=== PATIENT | male | born 1945 | race Hispanic/Latino ===

== ENCOUNTER → 2017-09-29 | Day surgery (SDC) | payer MEDICARE, BC ==
[2017-09-26 13:55] LABS: BASOPHILS % 0.5 % (0.0-1.0); EOSINOPHILS # (AUTO) 0.1 (0.0-0.4); EOSINOPHILS % 1.6 % (0.0-6.0); HEMOGLOBIN 13.1 g/dL (14.0-18.0); LYMPHOCYTES # (AUTO) 1.7 (1.0-3.2); LYMPHOCYTES % 30.2 % (18.0-39.1); MEAN CORPUSCULAR HEMOGLOBIN 28.9 pg (28-32); MEAN CORPUSCULAR HGB CONC 34.5 g/dL (31-35); MEAN CORPUSCULAR VOLUME 83.9 fL (81-99); MONOCYTES # (AUTO) 0.4 (0.2-0.8); MONOCYTES % 7.5 % (4.4-11.3); NEUTROPHILS # (AUTO) 3.3 (2.1-6.9); NEUTROPHILS % 59.8 % (38.7-80.0); PLATELET COUNT 147 x10e3/uL (140-360); RED BLOOD COUNT 4.53 x10e6/uL (4.3-5.7); RED CELL DISTRIBUTION WIDTH 12.7 % (11.7-14.4)
[~2017-09-29] MED LIST: BYSTOLIC PO; FENTANYL CITRATE/PF 100MCG/2 ML INJ ONE; GABAPENTIN300 MG PO; HYOSCYAMINE SULFATE 0.5 MG/ML AMP ONE; IBUPROFEN200 MG PO; INVOKANA PO; LOSARTAN-HCTZ1 EAC2 PO; MIDAZOLAM HCL 2 MG/2 ML VIAL ONE; PANTOPRAZOLE 40 MG 10ML VIAL ONE; PROPOFOL IV EMULSION 10 MG/ML 50 ML VIAL ONE
--- OUTSIDE RECORDS SUMMARY | 2017-09-29 11:32 | XMS REPORT ---
Author Author [facility] Address Unknown Phone Unavailable Care Team Providers Care [employer] Inspector Name Role Phone Unavailable Unavailable Problems This patient has no known problems. Allergies, Adverse Reactions, Alerts This patient has no known allergies or adverse reactions. Medications This patient has no known medications. Encounters Start Date/Time End Date/Time Encounter Type Admission Type Attending [facility] Facility Care Department Encounter ID 2017-08-21 00:00:00 2017-08-21 00:00:00 Outpatient [facility] [id number] 2017-06-18 00:00:00 2017-06-18 00:00:00 Outpatient [facility] [id number] 2017-05-01 00:00:00 2017-05-01 00:00:00 Outpatient [facility] [id number] 2017-04-30 00:00:00 2017-04-30 00:00:00 Outpatient [facility] [id number] 2017-04-27 15:43:17 2017-04-27 15:43:17 Outpatient [facility] [id number] 2017-04-27 15:33:59 2017-04-27 15:33:59 Outpatient [facility] [id number] 2017-04-27 00:00:00 2017-04-27 00:00:00 Outpatient [facility] [id number] 2017-04-27 00:00:00 2017-04-27 00:00:00 Outpatient [facility] [id number] 2017-04-27 00:00:00 2017-04-27 00:00:00 Outpatient [facility] [id number] 2017-04-26 15:16:19 2017-04-26 15:16:19 Outpatient [facility] [id number] 2017-04-09 00:00:00 2017-04-09 00:00:00 Outpatient [facility] [id number] 2016-08-17 11:26:12 2016-08-17 11:26:12 Outpatient [facility] [id number] 2016-06-15 16:02:32 2016-06-15 16:02:32 Outpatient [facility] [id number] 2016-06-12 15:57:54 2016-06-12 15:57:54 Outpatient [facility] [id number] 2016-03-20 16:00:00 2016-03-20 16:00:00 Outpatient [facility] [id number] 2016-03-20 13:08:38 2016-03-20 13:08:38 Outpatient [facility] [id number]
--- NOTE | 2017-09-29 15:19 | Operative Report ---
DATE OF PROCEDURE: September 29, 2017 REFERRING PHYSICIAN: Dr. Ian Dewey PROCEDURE PERFORMED: Colonoscopy. INDICATIONS FOR COLONOSCOPY: Colorectal cancer screening. MEDICATION: Patient was done under MAC. Please see anesthesiologist's note. PROCEDURE: With the patient in the left lateral decubitus position, the flexible fiberoptic Olympus colonoscope was inserted into the rectum with ease and advanced all the way to the cecum. It was then withdrawn slowly. The mucosa overlying the cecum, ascending colon, transverse, descending, sigmoid, and rectum grossly appeared to be within normal limits. The scope was then retroflexed into the distal rectum, and moderate size internal hemorrhoids were noted, none of which was actively bleeding. The scope was then straightened out. It was subsequently withdrawn. Patient tolerated the procedure well. IMPRESSION: Internal hemorrhoids, none actively bleeding. PLAN: Initiate high-fiber and low-fat diet. Initiate high-fiber supplement. Patient might benefit from a followup colonoscopy in 5 years. Job#: [id number] RI cc:IAN DEWEY M.D.
== END | disposition home or self-care (01) ==
LOC: ENDO 11:30
PROVIDERS: ATTEND Internal Medicine Gastroenterology
DX: Z12.11 Encounter for screening for malignant neoplasm of colon (principal); K64.8 Other hemorrhoids; E11.9 Type 2 diabetes mellitus without complications; I10 Essential (primary) hypertension; Z01.810 Encounter for preprocedural cardiovascular examination; Z01.812 Encounter for preprocedural laboratory examination
CPT/HCPCS: 36415 ×2; 45378; 82948; 85025; 93005; J1980; J2250